=== PATIENT | female | born 1985 | race Caucasian/White ===

== ENCOUNTER → 2016-05-14 | Outpatient (CLI) | payer BC ==
[~2016-05-14] MED LIST: AZEL1SPR2 EACH NARE; BENA25TA3 PO; CEPH500C PO; DIPH1TAB36 PO; FLUT1SPR5 EACH NARE; IPRA0.06 EACH NARE; MELA3TAB PO; MULT1CHW33
== END ==
LOC: CPRE 09:50 → EDUNIT# 10:30
PROVIDERS: ATTEND Specialist
DX: Z01.812 Encounter for preprocedural laboratory examination (principal); J03.90 Acute tonsillitis, unspecified

== ENCOUNTER → 2016-05-16 | Day surgery (SDC) | payer BC ==
--- NOTE | 2016-05-15 17:45 | MH ---
cc: JOBY MARQUEZ DATE OF ADMISSION: 05/16/2016 ADMITTING DIAGNOSIS: HISTORY OF PRESENT ILLNESS: The patient is 30 years old with chronic tonsillitis for tonsillectomy. PAST MEDICAL HISTORY Notable for fibromyalgia. REVIEW OF SYSTEMS, FAMILY HISTORY AND SOCIAL HISTORY Unremarkable PHYSICAL EXAMINATION Well-appearing patient no acute distress noted. HEENT: Exam reveals significant tonsillar hypertrophy. Lungs: Clear. Heart: Regular rate and rhythm. Abdomen: Soft and nontender. Extremities: Without cyanosis, clubbing or edema. Neurological: Alert, oriented, nonfocal neurologic exam. IMPRESSION Patient with chronic tonsillitis for tonsillectomy. Instructed as to the method of surgery and possible complications, include anesthetic complications cardiac difficulty, pulmonary difficulty, stroke, or even . Surgical complications bleeding, infection, risk of reoperation transfusion, hemorrhage, velopharyngeal insufficiency and nasopharyngeal stenosis. The patient appeared to agree, accept and understand the above-mentioned risks and benefits. No guarantees or warranties regarding outcome were given. Will therefore proceed with surgery. Joby Marquez MD [facility] /5:23 PM /5:33 PM
[~2016-05-16] VITALS: Ht 175.3 cm; Wt 58.3 kg
[~2016-05-16] MED LIST changes: +ACETAMINOPHEN 1000 MG/100 ML VIAL IV ONE; +ACETAMINOPHEN 325MG/HYDROcodone 7.5MG/15ML UDC PO PRN; +APREPITANT 40 MG CAP ONE; +CHLORHEXIDINE GLUCONATE 2 % 1 PACK (2 CLOTHS) TOPICAL PRN; +DEXAMETHASONE SOD PHOS 4 MG/ML VIAL ONE; +DO NOT ADM ANY ANTICOAGULANT DRUGS PRN; +INSULIN HUMAN REGULAR 1,000 UNITS/10 ML VIAL SQ PRN; +LACTATED RINGER'S 1000 ML IV PRN; +METOPROLOL TARTRATE 25 MG TAB PO PRN; +MIDAZOLAM HCL 2 MG/2 ML VIAL ONE; +MORPHINE SULFATE 4 MG/ML INJ IV PUSH PRN; +ONDANSETRON HCL 4 MG/2 ML VIAL IV PUSH ONE; +ONDANSETRON HCL 4 MG/2 ML VIAL IV PUSH PRN; +POVIDONE IODINE 5% (ANTISEPSIS KIT) 4 APPLICATIONS EACH NARE PRN; +PROPOFOL 200 MG/20 ML AMP IV ONE; +SODIUM CHLORID 0.9% 500 ML IV PRN; +fentaNYL CITRATE 250 MCG/5 ML AMP ONE
[2016-05-16 07:37] VITALS: BP 131/88; PULSE 91; RESP 20; TEMP 98; O2SAT 99
[2016-05-16 11:01] VITALS: BP 121/72; PULSE 82; RESP 20; TEMP 97.4; O2SAT 98
--- NOTE | 2016-05-18 12:57 | MP ---
cc: EVER MARQUEZ DATE OF SURGERY: 05/16/2016 PREOPERATIVE DIAGNOSIS Chronic tonsillitis. PROCEDURE Tonsillectomy. ANESTHESIA General anesthesia. ESTIMATED BLOOD LOSS 50 cc. COMPLICATIONS None. OPERATING SURGEON Dr. Marquez. OPERATION FOLLOWS Prepped and draped in the usual fashion. A Sebastien-Russell mouth gag inserted per orally. Curved Allis clamp used to medialize initially the left tonsil. Anterior tonsillar pillar incision made with electrocautery. Tonsil removed in a plane between the capsule and the underlying muscle. Adequate hemostasis obtained with suction electrocautery. The curved Allis clamp used to then medialize the right tonsil and anterior tonsillar pillar incision made removing the tonsil in a plane between the capsule and the underlying muscle with a combination of suction cautery as well as straight cautery. Removal of the tonsil was performed and moderate bleeding was noted in the superior pole, cauterized with suction cautery, completely stopped. Sebastien-Russell was released and then reopened approximately 30 seconds later. No further active bleeding was noted. The Sebastien-Russell was then removed. The patient tolerated the procedure well. MD JEANNE Michel/MARIA VICTORIA /9:31 AM /12:41 PM
== END | disposition home or self-care (01) ==
LOC: HSDC 06:59
PROVIDERS: ATTEND Specialist
DX: J35.01 Chronic tonsillitis (principal); M79.7 Fibromyalgia
CPT/HCPCS: 00170; 42826; 88304; J0131; J1100; J2250; J2405; J3010; J8501